=== PATIENT | male | born 1955 | race Caucasian/White ===

== ENCOUNTER 2018-07-21 05:07 | Inpatient (IN) ==
[2018-07-15 14:13] LABS: HEMATOCRIT 43.5 % (42.0-52.0); HEMOGLOBIN 14.5 g/dL (14.0-18.0); MCH 31.9 PG (27-31); MCHC 33.3 g/dL (33-37); MCV 95.6 FL (81-99); MPV 9.7 FL (7.4-10.4); RBC 4.55 XMIL (4.7-6.1); RDW 13.3 % (11.5-14.5); WBC 9.69 X1000 (4.8-10.8)
--- NOTE | 2018-07-15 14:43 | EKG Report ---
Test Performed on : 07/15/2018 1:40:20 PM Test Reason : PAT Blood Pressure : / mmHG Vent. Rate : 066 BPM Atrial Rate : 066 BPM P-R Int : 150 ms QRS Dur : 108 ms QT Int : 380 ms P-R-T Axes : 055 029 065 degrees QTc Int : 398 ms Normal sinus rhythm. Normal ECG When compared with ECG of 29-AUG-2007 13:10, Criteria for Lateral infarct are no longer present Criteria for Inferior infarct are no longer present T wave inversion no longer evident in Inferior leads T wave amplitude has decreased in Lateral leads Confirmed by Moni GRANT, Cash ([id number]) on 07/16/2018 8:56:26 AM
[2018-07-15 15:00] LABS: AGAP 9; BUN 9 mg/dL (8-22); CALCIUM 8.8 mg/dL (8.8-10.2); CHLORIDE 104 mmol/L (98-107); COSMO 275; ESTIMATED GFR > 60; GLUCOSE 77 mg/dL (70-104); POTASSIUM 4.6 mmol/L (3.5-5.1); SODIUM 139 mmol/L (136-145); TCO2 26 mmol/L (25-35)
[2018-07-21] MEDS ORDERED: KEFZOL 2 GM/D5W 2 GM/50 ML IVPB ONE (05:38)
[2018-07-21] MEDS ORDERED: REGLAN ONE (05:38)
[2018-07-21] MEDS ORDERED: LR 1,000 ML ONE ×2 (05:38→12:49)
[2018-07-21] MEDS ORDERED: PEPCID ONE (05:38)
[2018-07-21] MEDS ORDERED: COREG ONE (05:45)
[2018-07-21] MEDS ORDERED: HEPARIN ONE (06:30)
[2018-07-21] MEDS ORDERED: KEFZOL ONE (06:30)
[2018-07-21] MEDS ORDERED: NS 1,000 ML ONE (06:31)
[2018-07-21] MEDS ORDERED: QUELICIN (DOSE) ONE (06:36)
[2018-07-21] MEDS ORDERED: ROBINUL ONE ×2 (06:36→08:11)
[2018-07-21] MEDS ORDERED: XYLOCAINE-MPF 2% ONE (06:36)
[2018-07-21] MEDS ORDERED: DIPRIVAN 1% ONE (06:37)
[2018-07-21] MEDS ORDERED: NEO-SYNEPHRINE ONE (06:37)
[2018-07-21] MEDS ORDERED: NITROGLYCERIN 50 MG/D5W 50 MG/250 ML IV.SOLN ONE (06:44)
[2018-07-21] MEDS ORDERED: VERSED ONE (06:48)
[2018-07-21] MEDS ORDERED: EPHEDRINE ONE (07:15)
[2018-07-21] MEDS ORDERED: STERILE WATER INJ. ONE (07:15)
[2018-07-21] MEDS ORDERED: NORCURON ONE ×2 (07:15→08:37)
[2018-07-21] MEDS ORDERED: FENTANYL ONE (07:30)
[2018-07-21 08:05] LABS: URINE SOURCE CATH
[2018-07-21] MEDS ORDERED: ZOFRAN ONE (08:11)
[2018-07-21] MEDS ORDERED: OFIRMEV 1000 MG/ISOTONIC SOLN 1,000 MG/100 ML BOTTLE ONE (08:11)
[2018-07-21] MEDS ORDERED: DECADRON ONE (08:11)
[2018-07-21] MEDS ORDERED: NEOSTIGMINE ONE (08:12)
[2018-07-21 08:18] LABS: BILIRUBIN URINE NEGATIVE (NEGATIVE); BLOOD URINE NEGATIVE (NEGATIVE); COLOR STRAW; GLUCOSE URINE NEGATIVE (NEGATIVE); KETONE URINE NEGATIVE (NEGATIVE); LEUKOCYTES URINE NEGATIVE (NEGATIVE); NITRITE URINE NEGATIVE (NEGATIVE); PH URINE 6.5; PROTEIN URINE NEGATIVE (NEGATIVE); TURBIDITY URINE CLEAR (CLEAR); UROBILINOGEN URINE NORMAL (NORMAL)
[2018-07-21 08:19] LABS: UR EPITHELIAL CELLS <10 /HPF (<10); URINE BACTERIA NEGATIVE /HPF; URINE RBC <10 /HPF (<10); URINE WBC <10 /HPF (<10)
[2018-07-21] MEDS ORDERED: HEPARIN (DOSE) ONE (09:02)
[2018-07-21] MEDS: DILAUDID ONE ×4 (11:44→12:39)
[2018-07-21] MEDS ORDERED: ZOFRAN IV PRN (11:45)
[2018-07-21] MEDS ORDERED: NARCAN 0.4 MG in LR 1,000 ML IV PRN (11:45)
[2018-07-21] MEDS ORDERED: DILAUDID PCA VIAL IV PRN (11:45)
[2018-07-21] MEDS ORDERED: NARCAN IV PRN (11:45)
[2018-07-21] MEDS: PHENERGAN ONE (12:05)
--- NOTE | 2018-07-21 12:46 | OPERATIVE NOTE ---
PROCEDURE DATE: 07/21/2018 PROCEDURE: Aortobifemoral bypass. SURGEON: Paco Wright MD. PUMP SERVICER: Morena Mckeon. PREOPERATIVE DIAGNOSIS: Aortic occlusion with claudication. POSTOPERATIVE DIAGNOSIS: The same. DESCRIPTION OF PROCEDURE: Satisfactory general endotracheal anesthesia achieved. The abdomen and groins were prepped and draped in a sterile fashion. We began on the left groin, made a vertical incision, dissected down to the common femoral artery, surrounded with an umbilical tape. The branch vessels were surrounded with vessel loops. Small branches were surrounded with 2-0 silks. An antibiotic sponge was placed. We turned our attention to the right groin, did the same thing. We made a vertical incision, dissected down to the common femoral, surrounded with an umbilical tape and then the branch vessels were surrounded with vessel loops. An antibiotic sponge was placed there. We then covered those wounds. We then made a midline abdominal incision, carried our incision through the subcutaneous tissue through the midline fascia, entering the abdominal cavity. We then folded the bowel to the right and into the retroperitoneum. We got a little too far to the right to begin with but then corrected course and went right down onto the aorta. Small vessels were clipped and divided. Small veins were ligated and divided. After exposing the aorta, we placed the bowel within the bowel bag and used our Bookwalter retractor to retract circumferentially in the abdomen. We gave the patient 7500 units of heparin. We dissected around the aorta right below the renals, surrounded with an umbilical tape. Before we gave the heparin, we did make tunnels down to both groins. After those tunnels were made and umbilical tapes were placed, that is when we gave the heparin. After the heparin had circulated, we then placed our side-biting clamp around the aorta. We clamped the aorta and then about 2.5 cm below that, we transected the aorta. Clot was present. We removed a portion of the aorta to give us room to sew. We removed the clot from the proximal stump, and in fact, held pressure above the clamp, opened the clamp and removed what residual clot was present to give free flow into the stump. We clamped it off once again, obtained a 16 x 8 bifurcated collagen impregnated graft and then cut proximally and somewhat placed the cuff around the graft and then sewed the graft to the aortic stump using a 3-0 Prolene stitch beginning posteriorly and coming anteriorly. We then tested the anastomosis. One additional stitch was required. We then passed the cuff over the anastomosis to cover it. We sucked out the limbs of the graft. We then passed the right limb to the right groin, the left limb to the left groin, removing those umbilical tapes we used as guides. These were placed along the course of the artery deep to the ureters as they were passed down to the groins. We turned our attention first to the right groin. We clamped off the common femoral, occluded flow in the branch vessels with the vessel loops. We then incised the common femoral down onto the SFA. We then cut the graft to match the arteriotomy and constructed this anastomosis with a 5-0 Prolene stitch. We back bled the vessels before finishing. We then flushed the right limb of the graft including the left limb with a 35/35 angle DeBakey clamp. It flushed and no clots were seen. We then finished the anastomosis. The clamp from the aorta was then opened and flow was established into the right leg. Hemostasis appeared satisfactory in the proximal anastomosis as well as the distal right groin anastomosis. We then turned our attention the left-side and did a similar anastomosis on the left, clamping the vessels and incising the common femoral, extending down the SFA, cut the graft to match the arteriotomy and then constructed this anastomosis with a 5-0 Prolene running stitch. As we neared completion, we back bled the branch vessels, flushed the graft. Good flow was present. We then finished the anastomosis and the flow to the left leg was established. A couple of additional stitches were used was achieved complete hemostasis. We then placed antibiotic sponges in the groins. We turned our attention back to the abdomen. We then closed the retroperitoneum with a 2-0 Polysorb running stitch. We did place some omentum into the groove between the duodenum and the graft to be certain that this was protected and there was no attachment or contiguous placement of the duodenum to the graft. After we finished the closure of the retroperitoneum, we then took the bowels out of the bag and returned them to their normal position. The small laceration or the small rent in the mesentery that was to the right was closed as well. Hemostasis was satisfactory. We then proceeded to close the peritoneum with a 2-0 chromic. We closed the fascia the running #2 Prolene. We then looked at both groins. Both groins were hemostatic. We irrigated both with Kefzol-impregnated saline. We then closed both groins with 2 layers of 3-0 Polysorb running. The skin was then closed at each incision with amy. Sterile dressings were applied. He tolerated it well, was sent to the recovery room in satisfactory condition. cc: Paco Wright MD
[2018-07-21] MEDS: ZOFRAN IV PRN (13:35)
[2018-07-21] MEDS: NS 1,000 ML IV SCH ×2 (14:00→20:52)
[2018-07-21] MEDS: KEFZOL 1 GM/D5W 1 GM/50 ML IVPB IV SCH ×2 (14:17→23:08)
[2018-07-21 17:26] LABS: HEMATOCRIT 36.5 % (42.0-52.0); HEMOGLOBIN 12.4 g/dL (14.0-18.0)
[2018-07-21] MEDS: COREG PO SCH (20:52)
[2018-07-22] MEDS: NS 1,000 ML IV SCH ×4 (03:20→23:24)
[2018-07-22 05:25] LABS: HEMATOCRIT 31.5 % (42.0-52.0); HEMOGLOBIN 10.7 g/dL (14.0-18.0); IMM GRAN# 0.05 X1000 (0.0-0.04); IMM GRAN% 0.2 % (0.0-0.5); LYMPH% 10.2 % (20.5-51.1); MCH 30.7 PG (27-31); MCV 90.3 FL (81-99); MONO% 7.8 % (1.7-9.3); MPV 10.3 FL (7.4-10.4); NEUT# 16.88 X1000 (1.4-6.5); NEUT% 81.8 % (42.2-75.2); PLT 157 X1000 (130-400); RBC 3.49 XMIL (4.7-6.1); RDW 13.5 % (11.5-14.5); WBC 20.63 X1000 (4.8-10.8)
[2018-07-22 05:56] LABS: ESTIMATED GFR > 60
[2018-07-22] MEDS: KEFZOL 1 GM/D5W 1 GM/50 ML IVPB IV SCH ×3 (06:20→23:24)
[2018-07-22] MEDS: ZOFRAN IV PRN (06:21)
[2018-07-22 06:27] LABS: AGAP 6; BUN 15 mg/dL (8-22); CHLORIDE 113 mmol/L (98-107); COSMO 284; CREATININE 0.8 mg/dL (0.7-1.2); GLUCOSE 174 mg/dL (70-104); POTASSIUM 4.2 mmol/L (3.5-5.1); SODIUM 140 mmol/L (136-145); TCO2 21 mmol/L (25-35)
[2018-07-22] MEDS: DILAUDID ONE ×2 (07:16)
[2018-07-22] MEDS: PHENERGAN ONE (07:16)
[2018-07-22] MEDS: LR 1,000 ML IV SCH ×2 (07:16→10:34)
[2018-07-22] MEDS ORDERED: PHENERGAN IV ONE (08:16)
[2018-07-22] MEDS ORDERED: SODIUM CHLORIDE 0.9% INJ ONE (08:16)
[2018-07-22] MEDS ORDERED: LABETALOL IV ONE (08:24)
[2018-07-22] MEDS: COREG PO SCH ×2 (08:42→20:27)
[2018-07-22 09:57] LABS: HEMATOCRIT 32.9 % (42.0-52.0)
[2018-07-22] MEDS: SODIUM CHLORIDE 0.9% INJ SCH (10:57)
[2018-07-22] MEDS: PROTONIX IV SCH (10:57)
--- NOTE | 2018-07-22 11:37 | GENERAL SURGERY PROGRESS NOTE ---
DATE: 07/22/2018 SUBJECTIVE: Mr. Salmon is postop day 1 after aortobifemoral bypass. His heart rate is 109. Blood pressure is 125/100. He has had significant amount of nausea, which we have tried to control with Zofran and Phenergan. His feet are warm. He has palpable dorsalis pedis pulses. His wounds look fine. DIAGNOSTICS/LABS: White count is 20,000 today, hemoglobin 11, hematocrit 32.9. Sodium 140, potassium 4.2, chloride 113, carbon dioxide 21. BUN 15, creatinine 0.8. PLAN: The plan is to put him on IV Protonix, and we may have to resort to NG suction. His perfusion is good, however. cc: Paco Wright MD
[2018-07-23] MEDS: NS 1,000 ML IV SCH ×3 (05:14→17:10)
[2018-07-23 06:01] LABS: BASO# 0.01 X1000 (0.0-0.2); EOS# 0.02 X1000 (0.0-0.7); EOS% 0.1 % (0.0-10.0); HEMATOCRIT 24.3 % (42.0-52.0); HEMOGLOBIN 8.2 g/dL (14.0-18.0); IMM GRAN# 0.08 X1000 (0.0-0.04); IMM GRAN% 0.3 % (0.0-0.5); LYMPH# 3.19 X1000 (1.2-3.4); LYMPH% 13.2 % (20.5-51.1); MCH 31.7 PG (27-31); MCHC 33.7 g/dL (33-37); MCV 93.8 FL (81-99); MONO# 3.05 X1000 (0.11-0.59); MONO% 12.7 % (1.7-9.3); MPV 10.9 FL (7.4-10.4); NEUT# 17.74 X1000 (1.4-6.5); NEUT% 73.7 % (42.2-75.2); PLT 102 X1000 (130-400); RBC 2.59 XMIL (4.7-6.1); RDW 13.5 % (11.5-14.5); WBC 24.09 X1000 (4.8-10.8)
[2018-07-23] MEDS: KEFZOL 1 GM/D5W 1 GM/50 ML IVPB IV SCH ×3 (06:08→22:07)
[2018-07-23 07:05] LABS: ESTIMATED GFR > 60
[2018-07-23 07:06] LABS: AGAP 8; BUN 19 mg/dL (8-22); CHLORIDE 112 mmol/L (98-107); COSMO 282; CREATININE 0.8 mg/dL (0.7-1.2); GLUCOSE 102 mg/dL (70-104); POTASSIUM 4.2 mmol/L (3.5-5.1); SODIUM 140 mmol/L (136-145); TCO2 20 mmol/L (25-35)
[2018-07-23] MEDS: PROTONIX IV SCH (09:17)
[2018-07-23] MEDS: COREG PO SCH ×2 (09:18→21:04)
[2018-07-23] MEDS: ZOFRAN IV PRN (12:33)
[2018-07-23] MEDS: LR 1,000 ML IV SCH (15:11)
--- NOTE | 2018-07-23 18:15 | GENERAL SURGERY PROGRESS NOTE ---
DATE: 07/23/2018 Mr. Salmon says he feels better today. His heart rate 112, blood pressure 145/78. Nausea is improved. He has passed some flatus. DIAGNOSTIC STUDIES: White count today is 24,000, hemoglobin 8.2, hematocrit 24. Sodium 140, chloride 112, carbon dioxide 20, BUN 18, creatinine 0.8. ASSESSMENT: It appears this ileus is resolving. PLAN: We will start him on clear liquids tonight, and we will get him up. We will cut his IV rate down to 80 and take his Self out. We will recheck his white count tomorrow. cc: Paco Wright MD
[2018-07-24 05:20] LABS: BASO# 0.01 X1000 (0.0-0.2); BASO% 0.1 % (0.0-0.8); EOS# 0.03 X1000 (0.0-0.7); EOS% 0.2 % (0.0-10.0); HEMATOCRIT 21.1 % (42.0-52.0); IMM GRAN# 0.06 X1000 (0.0-0.04); IMM GRAN% 0.3 % (0.0-0.5); LYMPH% 12.7 % (20.5-51.1); MCH 31.5 PG (27-31); MCHC 33.2 g/dL (33-37); MONO# 1.88 X1000 (0.11-0.59); MONO% 10.9 % (1.7-9.3); MPV 10.4 FL (7.4-10.4); NEUT# 13.12 X1000 (1.4-6.5); NEUT% 75.8 % (42.2-75.2); PLT 99 X1000 (130-400); RBC 2.22 XMIL (4.7-6.1); RDW 13.5 % (11.5-14.5)
[2018-07-24 05:44] LABS: ESTIMATED GFR > 60
[2018-07-24] MEDS: NS 1,000 ML IV SCH (05:47)
[2018-07-24 05:51] LABS: AGAP 8; BUN 13 mg/dL (8-22); CHLORIDE 111 mmol/L (98-107); COSMO 282; CREATININE 0.7 mg/dL (0.7-1.2); GLUCOSE 103 mg/dL (70-104); POTASSIUM 3.8 mmol/L (3.5-5.1); SODIUM 141 mmol/L (136-145); TCO2 22 mmol/L (25-35)
[2018-07-24] MEDS ORDERED: CALCIUM GLUCONATE 1 GM in NS 50 ML IV ONE (05:56)
[2018-07-24] MEDS: KEFZOL 1 GM/D5W 1 GM/50 ML IVPB IV SCH (06:08)
[2018-07-24] MEDS: PROTONIX IV SCH (08:09)
[2018-07-24] MEDS: COREG PO SCH ×2 (08:09→21:08)
[2018-07-24] MEDS ORDERED: NS 1,000 ML IV SCH (10:36)
[2018-07-24] MEDS ORDERED: LASIX IV ONE (10:36)
[2018-07-24] MEDS ORDERED: NORCO-7.5 PO PRN (10:38)
--- NOTE | 2018-07-24 11:22 | GENERAL SURGERY PROGRESS NOTE ---
DATE: 07/24/2018 SUBJECTIVE: He is 3 days after his aortobifemoral bypass. OBJECTIVE: Today, his temperature is 99.5 degrees, heart rate is 89, blood pressure 132/77. He has a little rhonchi on the right. He is taking liquids satisfactorily. His wounds look okay. INTAKE AND OUTPUT: Intake 2990. Output 1525. DIAGNOSTIC STUDIES: His hemoglobin is down to 7, hematocrit 21 and some of this is dilutional, white count is down to 17,300. Sodium 141, potassium 3.8, chloride 111, carbon dioxide 22, BUN 13, creatinine 0.7. PLAN: The plan will be does make his IV KVO. Stop his pain pump. Advance him to full liquids. We will diurese him somewhat today and get him out of bed. We will move him up to a regular room. cc: Paco Wright MD
[2018-07-24] MEDS: DILAUDID IV PRN (16:55)
[2018-07-24] MEDS: LIPITOR PO SCH (21:08)
[2018-07-25] MEDS: DILAUDID IV PRN (07:23)
[2018-07-25 07:40] LABS: BASO# 0.01 X1000 (0.0-0.2); BASO% 0.1 % (0.0-0.8); EOS# 0.08 X1000 (0.0-0.7); EOS% 0.5 % (0.0-10.0); HEMATOCRIT 22.4 % (42.0-52.0); HEMOGLOBIN 7.5 g/dL (14.0-18.0); IMM GRAN# 0.04 X1000 (0.0-0.04); IMM GRAN% 0.3 % (0.0-0.5); LYMPH# 2.14 X1000 (1.2-3.4); LYMPH% 14.6 % (20.5-51.1); MCH 31.3 PG (27-31); MCHC 33.5 g/dL (33-37); MCV 93.3 FL (81-99); MONO# 1.48 X1000 (0.11-0.59); MONO% 10.1 % (1.7-9.3); NEUT# 10.94 X1000 (1.4-6.5); NEUT% 74.4 % (42.2-75.2); PLT 125 X1000 (130-400); WBC 14.69 X1000 (4.8-10.8)
[2018-07-25 07:58] LABS: AGAP 8; BUN 13 mg/dL (8-22); CALCIUM 7.6 mg/dL (8.8-10.2); CHLORIDE 105 mmol/L (98-107); COSMO 275; CREATININE 0.7 mg/dL (0.7-1.2); ESTIMATED GFR > 60; GLUCOSE 114 mg/dL (70-104); POTASSIUM 3.3 mmol/L (3.5-5.1); SODIUM 137 mmol/L (136-145); TCO2 24 mmol/L (25-35)
[2018-07-25] MEDS: PROTONIX IV SCH (09:10)
[2018-07-25] MEDS: COREG PO SCH ×2 (09:10→21:02)
[2018-07-25] MEDS: PLAVIX PO SCH (09:10)
[2018-07-25] MEDS: SODIUM CHLORIDE 0.9% INJ SCH (09:10)
[2018-07-25] MEDS: ASPIRIN PO SCH (09:10)
[2018-07-25] MEDS ORDERED: LASIX IV ONE (14:45)
[2018-07-25] MEDS ORDERED: SALINE LOCK IV FLUID XX ONE (14:45)
[2018-07-25] MEDS: LIPITOR PO SCH (21:02)
[2018-07-25] MEDS: FERROUS SULFATE PO SCH (21:02)
[2018-07-26] MEDS: DILAUDID IV PRN ×2 (04:52→09:30)
[2018-07-26 07:02] LABS: BASO# 0.02 X1000 (0.0-0.2); BASO% 0.1 % (0.0-0.8); EOS# 0.12 X1000 (0.0-0.7); EOS% 0.9 % (0.0-10.0); HEMATOCRIT 24.3 % (42.0-52.0); HEMOGLOBIN 8.1 g/dL (14.0-18.0); LYMPH# 2.08 X1000 (1.2-3.4); LYMPH% 14.8 % (20.5-51.1); MCH 31.3 PG (27-31); MCHC 33.3 g/dL (33-37); MCV 93.8 FL (81-99); MONO# 1.49 X1000 (0.11-0.59); MONO% 10.6 % (1.7-9.3); MPV 9.7 FL (7.4-10.4); NEUT# 10.38 X1000 (1.4-6.5); NEUT% 73.6 % (42.2-75.2); PLT 215 X1000 (130-400); RBC 2.59 XMIL (4.7-6.1); WBC 14.09 X1000 (4.8-10.8)
[2018-07-26 07:29] LABS: AGAP 10; BUN 16 mg/dL (8-22); CHLORIDE 103 mmol/L (98-107); COSMO 284; CREATININE 0.7 mg/dL (0.7-1.2); ESTIMATED GFR > 60; GLUCOSE 120 mg/dL (70-104); POTASSIUM 3.8 mmol/L (3.5-5.1); SODIUM 141 mmol/L (136-145); TCO2 28 mmol/L (25-35)
--- NOTE | 2018-07-26 09:21 | PROGRESS NOTE ---
DATE: 07/26/2018 SUBJECTIVE: Mr. Salmon is status post aortobifemoral arterial bypass graft. He is sitting up in his bed this morning eating breakfast. OBJECTIVE: Skin: His incisions seem to be intact without problems. Abdomen: Slightly distended but not tightly so. He has been able to get up. Vital signs: His heart rate is 87, blood pressure 134/76, O2 saturation 99%. He is afebrile. LABORATORY DATA: His white blood cell count is 14, hematocrit is 24%. Electrolytes are within normal limits. BUN is 16, creatinine 0.7. PLAN: We will increase his activity today, be sure that he is tolerating his diet. cc: MD Paco Coon MD
[2018-07-26] MEDS: ASPIRIN PO SCH (10:38)
[2018-07-26] MEDS: PROTONIX IV SCH (10:38)
[2018-07-26] MEDS: PLAVIX PO SCH (10:38)
[2018-07-26] MEDS: COREG PO SCH ×2 (10:38→21:31)
[2018-07-26] MEDS: SODIUM CHLORIDE 0.9% INJ SCH (10:38)
[2018-07-26] MEDS: FERROUS SULFATE PO SCH ×2 (10:38→21:31)
[2018-07-26] MEDS: LIPITOR PO SCH (21:31)
[2018-07-27] MEDS: DILAUDID IV PRN (05:11)
[2018-07-27 07:32] VITALS: BP 127/86
[2018-07-27] MEDS: PLAVIX PO SCH (08:57)
[2018-07-27] MEDS: ASPIRIN PO SCH (08:58)
[2018-07-27] MEDS: FERROUS SULFATE PO SCH (08:58)
[2018-07-27] MEDS: SODIUM CHLORIDE 0.9% INJ SCH (08:58)
[2018-07-27] MEDS: PROTONIX IV SCH (08:58)
[2018-07-27] MEDS: COREG PO SCH (08:58)
--- NOTE | 2018-07-27 10:55 | DISCHARGE SUMMARY ---
ADMISSION DATE: 07/21/2018 DISCHARGE DATE: 07/27/2018 ADMITTING DIAGNOSIS: Disabling bilateral lower extremity claudication with distal aortic occlusion. DISCHARGE DIAGNOSIS: Disabling bilateral lower extremity claudication with distal aortic occlusion. PRINCIPAL PROCEDURE: Aortobifemoral arterial bypass on 07/21/[address] Wright. DISCHARGE DIET: Regular. DISCHARGE DISPOSITION: He will return to our outpatient offices in 8 days for followup. DISCHARGE DISABILITY: Full. DISCHARGE MEDICATIONS: He is to return to his home medications. HOSPITAL COURSE: Mr. Myron Salmon is a 63-year-old white male who was admitted on the day of surgery and underwent an open aortobifemoral arterial bypass graft per Dr. Wright 07/21/2018. After surgery, went to the recovery room and then was hospitalized on the [address] [place] [address] g[facility]. We felt that his postoperative convalescence was normal. We were able to slowly increase his activity. He was ambulating in the halls at the time of discharge. His wounds were healing well without evidence of infection. His abdomen was soft, and he had bowel function. We felt he had good flow to his legs. He will be discharged under the care of his family with followup in our outpatient offices in approximately 8 days. He knows to contact us with any problems such as increasing abdominal distention or pain, nausea and vomiting, or problems with his legs at discharge. OBJECTIVE: His heart rate was 82, blood pressure 127/86, O2 saturation 99%. He was afebrile. His hematocrit yesterday was 24%. His electrolytes are within normal limits. BUN is 16 creatinine is 0.7. He is on aspirin and Plavix. cc: MD Paco Coon MD
== END 2018-07-27 10:08 | disposition home or self-care (01) | DRG 272 ==
LOC: DIRADM 05:07 → 4N 10:10 → ICU 11:43 → 4N 07-24 12:13
PROVIDERS: ADMIT Surgery; ATTEND Surgery
CPT/HCPCS: 36430; 80048; 81001; 82330; 85014; 85018; 85025; 85027; 86850; 86900; 86901; 86920; 88304; 93005; 93010; A9270; C1768; C9113; J0131; J0330; J0610; J0690; J1100; J1170; J1644; J1940; J2250; J2370; J2405; J2550; J3010; J7030; J7120; P9016; S0164